=== PATIENT | male | born 1945 | race Caucasian/White ===

== ENCOUNTER 2018-02-10 08:04 | Inpatient (IN) | END 2018-02-12 12:09 | DRG 462 ==

== ENCOUNTER 2018-02-12 12:27 | Inpatient (IN) | END 2018-02-13 07:05 | disposition short-term general hospital (02) | DRG 560 ==

== ENCOUNTER 2018-02-13 07:20 | Inpatient (IN) | END 2018-02-27 20:40 | DRG 326 ==